=== PATIENT | female | born 1955 | race Caucasian/White ===

== ENCOUNTER 2020-12-25 13:53 | Emergency (ER) | payer OTHER, MEDICARE ==
[~2020-12-25 13:53] MED LIST: ATIVAN1 MG PO; CARAFATE1 GM PO; GI COCKTAIL PO; HYDROCHLOROTHIA25 MG PO; LEVOTHYROXINE100 MCG PO; LORTAB 5-325 M1 EACH PO; PROTONIX40 MG PO; VENLAFAXINE H37.5 M1 PO; VITAMIN B17 PO; VITAMIN D31000 UNI1 PO; ZOFRAN4 MG PO; ZOFRAN4 MG SL
[2020-12-25] MEDS ORDERED: HYDROCODON-ACE1 EAC4 PO (16:35)
[2020-12-25] MEDS ORDERED: IBUPROFEN600 MG PO (16:37)
== END 2020-12-25 17:01 | disposition home or self-care (01) ==
LOC: ER1 13:53
DX: S09.90XA Unspecified injury of head, initial encounter (principal); S13.4XXA Sprain of ligaments of cervical spine, initial encounter; S33.5XXA Sprain of ligaments of lumbar spine, initial encounter; V49.40XA Driver injured in collision with unspecified motor vehicles in traffic accident, initial encounter; Y92.410 Unspecified street and highway as the place of occurrence of the external cause
CPT/HCPCS: 70450; 72125; 72131; 99284